=== PATIENT | male | born 1985 | race Caucasian/White ===

== ENCOUNTER → 2020-09-17 | Outpatient (CLI) | payer OTHER ==
[~2020-09-17] MED LIST: CLARITIN10 M2 PO; PREDNISONE50 MG PO
== END ==
LOC: ECHO 10:22 → HEART 5 10:22 → ECHO 09-19 13:00
DX: Z01.818 Encounter for other preprocedural examination (principal); F17.210 Nicotine dependence, cigarettes, uncomplicated; R94.2 Abnormal results of pulmonary function studies
CPT/HCPCS: 94060; 94729

== ENCOUNTER → 2020-09-20 | Outpatient (CLI) | payer OTHER | LOC: ECHO 13:38 | DX: Z01.810 Encounter for preprocedural cardiovascular examination (principal) | CPT/HCPCS: ECHO; 93306; Q9957 ==

== ENCOUNTER 2020-12-24 16:01 | Emergency (ER) | payer OTHER ==
[2020-12-24 17:11] LABS: HEMOGLOBIN 13.8 gm/dl (14.0-17.5); RED BLOOD COUNT 5.23 M/UL (4.20-5.50); WHITE BLOOD COUNT 9.9 K/UL (4.5-11.0)
[2020-12-24 17:29] LABS: BUN/CREATININE RATIO 23 (0-10)
[2020-12-24] MEDS ORDERED: CLARITIN10 M2 PO (19:56)
[2020-12-24] MEDS ORDERED: PREDNISONE50 MG PO (19:56)
== END 2020-12-24 20:20 | disposition home or self-care (01) ==
LOC: ER1 16:01
PROVIDERS: Physician Assistant
DX: R21 Rash and other nonspecific skin eruption (principal); I10 Essential (primary) hypertension
CPT/HCPCS: 80053; 85025; 99283